=== PATIENT | male | born 2000 | race Two or more races ===

== ENCOUNTER 2019-09-17 03:52 | Emergency (ER) | payer MEDICAID ==
[~2019-09-17] VITALS: Ht 177.8 cm; Wt 92.0 kg
[2019-09-17 05:00] VITALS: BP 129/77
== END 2019-09-17 05:00 | disposition home or self-care (01) ==
LOC: ER 03:52
DX: J06.9 Acute upper respiratory infection, unspecified (principal)
CPT/HCPCS: 99283